=== PATIENT | female | born 1995 | race Caucasian/White ===

== ENCOUNTER 2020-02-14 08:44 | Outpatient (CLI) | payer BC | END 2020-02-14 08:45 | disposition home or self-care (01) | LOC: DTY/OP 08:44 | PROVIDERS: ATTEND Surgery | DX: E66.01 Morbid (severe) obesity due to excess calories (principal) | CPT/HCPCS: 97802 ==

== ENCOUNTER 2020-06-04 04:50 | Outpatient (CLI) | payer BC, OTHER ==
--- NOTE | 2020-06-04 12:02 | RAD ---
Exam: Chest one view HISTORY:Preoperative exam. Comparison: None FINDINGS: Cardiac silhouette: Normal Aorta: Unremarkable Pulmonary vessels: Normal Costophrenic angles: Clear LUNGS: No masses or consolidation. Pneumothorax: None Osseous abnormalities: None IMPRESSION: No acute cardiopulmonary process.
[2020-06-04 14:27] LABS: #Basophils 0.1 thou/uL (0.0-0.2); #Eosinphils 0.2 thou/uL (0.0-0.7); #Lymphocytes 2.4 thou/uL (1.20-3.40); #Monocytes 0.7 thou/uL (0.11-0.59); #Neutrophils 3.5 thou/uL (1.40-6.50); %Eosinophils 2.8 % (0.0-10.0); %Lymphocytes 34.6 % (21.0-51.0); %Monocytes 10.2 % (0.0-10.0); %Neutrophils 50.4 % (42.0-75.0); Hemoglobin 13.5 g/dL (12.0-16.0); Mean Corpuscular HGB CONC 33.9 g/dL (32.0-36.0); Mean Corpuscular Hemoglobin 31.1 pg (27.0-31.0); Mean Corpuscular Volume 91.7 fL (78.0-98.0); Mean Platelet Volume 8.3 fL (7.4-10.4); Platelet Count 274 thou/uL (130-400); RBC Distribution Width 11.4 % (11.5-14.5); Red Blood Cell (RBC) Count 4.34 mill/uL (4.20-5.40); White Blood Cell (WBC) Count 6.9 thou/uL (4.8-10.8)
[2020-06-04 15:24] LABS: Hemoglobin A1c 5.4 % (4.0-6.0)
[2020-06-04 15:45] LABS: ALT (SGPT) 55 U/L (8-55); AST (SGOT) 33 U/L (5-34); Albumin 4.5 g/dL (3.5-5.0); Alkaline Phosphatase 58 U/L (40-110); Anion Gap 15 mmol/L (10-20); BUN (Urea Nitrogen) 11 mg/dL (7.0-18.7); Bilirubin, Total 0.4 mg/dL (0.2-1.2); Calc. Creatinine Clearance 0 mL/min (70-130); Calcium 9.4 mg/dL (7.8-10.44); Carbon Dioxide 22 mmol/L (22-29); Chloride 103 mmol/L (98-107); Estimated GFR-MDRD Greater than 90; Globulin 2.9 g/dL (2.4-3.5); Glucose 97 mg/dL (70-105); Potassium 4.3 mmol/L (3.5-5.1); Protein, Total 7.4 g/dL (6.0-8.3); Sodium 136 mmol/L (136-145)
[2020-06-05 14:03] LABS: SARS-CoV-2 MS2 Positive; SARS-CoV-2 N Gene Negative; SARS-CoV-2 S Gene Negative; SARS-CoV-2 orf1ab Negative
== END 2020-06-04 04:51 | disposition home or self-care (01) ==
LOC: LABBT 04:50
PROVIDERS: ATTEND Surgery
DX: Z01.818 Encounter for other preprocedural examination (principal); Z11.59 Encounter for screening for other viral diseases; E66.01 Morbid (severe) obesity due to excess calories
CPT/HCPCS: 71045; 80053; 83036; 85025; 87635; 93005; 93010; U0003

== ENCOUNTER 2020-06-04 11:15 | Inpatient (IN) | payer BC ==
[2020-06-01 11:20] VITALS: BMI 49.4
[2020-06-07] MEDS ORDERED: Lidocaine 1% w/Epinephrine 1:100K 20 ML VIAL ONE (06:55)
[2020-06-07] MEDS ORDERED: Bupivacaine 0.25% HCL 30 ML VIAL ONE (06:55)
[2020-06-07] MEDS ORDERED: SUGAMMADEX SODIUM 500 MG/5 ML VIAL ONE (07:16)
[2020-06-07] MEDS ORDERED: Fentanyl 100 MCG/2 ML VIAL ONE ×3 (07:16→10:13)
[2020-06-07] MEDS ORDERED: HYDROmorphone 2 MG/ML VIAL ONE (07:16)
[2020-06-07] MEDS ORDERED: Midazolam HCl 2 mg/2 ml Vial ONE (07:37)
[2020-06-07] MEDS ORDERED: Meperidine HCl/PF 25 MG/ML VIAL SLOW IVP PRN (09:42)
[2020-06-07] MEDS ORDERED: Promethazine HCl 25 MG/ML VIAL SLOW IVP PRN (09:42)
[2020-06-07] MEDS ORDERED: Ondansetron HCl/PF 4 MG/2 ML Vial IVP PRN (09:42)
[2020-06-07] MEDS ORDERED: Morphine Sulfate 2 MG/ML SYRINGE SLOW IVP PRN (09:42)
[2020-06-07] MEDS ORDERED: PACU-Morphine 4MG/ML VIAL SLOW IVP PRN (09:42)
[2020-06-07] MEDS ORDERED: Promethazine HCl 25 MG/ML VIAL IM PRN ×3 (09:42→12:00)
[2020-06-07] MEDS ORDERED: HYDROmorphone 2 MG/ML VIAL SLOW IVP PRN (09:42)
[2020-06-07] MEDS ORDERED: diphenhydrAMINE 50 MG/ML VIAL IVP PRN ×2 (09:47→12:00)
[2020-06-07] MEDS ORDERED: diphenhydrAMINE 25 MG CAP PO PRN (09:47)
[2020-06-07] MEDS ORDERED: Zolpidem Tartrate 5 MG TAB PO PRN (09:47)
[2020-06-07] MEDS ORDERED: Ondansetron PF 4 MG/2 ML Vial IVP PRN ×2 (09:47→12:00)
[2020-06-07] MEDS ORDERED: diphenhydrAMINE 50 MG/ML VIAL IM PRN (09:47)
[2020-06-07] MEDS ORDERED: Naloxone HCl 0.4 mg/ml Vial IV PRN (09:47)
[2020-06-07] MEDS ORDERED: fentaNYL Citrate/PF 2,000 MCG in Sodium Chloride 0.9% 60 ML IV PRN (09:47)
[2020-06-07] MEDS ORDERED: Promethazine HCl 25 MG/ML VIAL ONE (09:59)
[2020-06-07] MEDS ORDERED: Communication Order-Pharmacy FS SCH (10:00)
[2020-06-07] MEDS ORDERED: D5 1/2 NS w/20 mEq KCL 1,000 ML ONE (10:18)
[2020-06-07] MEDS ORDERED: Labetalol HCl 100 MG/20 ML VIAL ONE ×2 (10:18→10:37)
[2020-06-07] MEDS ORDERED: hydrALAZINE 20 MG/ML VIAL ONE (10:20)
[2020-06-07] MEDS ORDERED: Morphine 4 MG/ML VIAL ONE (10:30)
--- NOTE | 2020-06-07 11:07 | OP ---
DATE OF PROCEDURE: 06/07/2020 PREOPERATIVE DIAGNOSES: 1. Morbid obesity with body mass index of 50. 2. Hypertension. POSTOPERATIVE DIAGNOSES: 1. Morbid obesity with body mass index of 50. 2. Hypertension. 3. Paraesophageal hiatal hernia. PROCEDURES: 1. Laparoscopic sleeve gastrectomy and GORE staple line reinforcement and 38-[place] bougie. 2. Laparoscopic paraesophageal hiatal hernia repair without mesh or fundoplication. 3. EGD. ANESTHESIA: General. ESTIMATED BLOOD LOSS: Minimal. COMPLICATIONS: None. SPECIMEN: Stomach. FINDINGS: Normal postoperative EGD. DESCRIPTION OF PROCEDURE: The patient was taken to the operating room and laid supine on the operating room table. After general anesthetic was obtained, arms and legs were double strapped to bariatric table. Her abdomen was prepped and draped in a sterile fashion. A left subcostal 5-mm Optiview trocar placed in the usual fashion and high-flow pneumoperitoneum was obtained. 12 mm ports were placed at the right and left umbilicus, 5 mm ports placed at right subcostal, 5 mm incisions made at the xiphoid and then Michael's were used to raise the liver off the GE junction. The short gastrics were taken down from midbody of the stomach to the left dexter of diaphragm. Left dexter, posterior fundus, and angle of His were completely dissected revealing a paraesophageal hiatal hernia. Short gastrics were taken down to a distance of 6 cm proximal to the pylorus. Circumferential dissection of the esophagus was performed bringing the fundus of the stomach back into the abdominal cavity. The gastrohepatic ligament was opened to dissect the right dexter. 38 bougie was brought and tip left in the antrum of the stomach. Multiple loads of [place] stapling device with GORE staple line reinforcement was used to form the sleeve. The first is a green load. The rest are gold loads, all the way to the angle of His. Stomach was removed from the left abdominal incision. The fascial defect closed using GraNee needle 0-Vicryl tie. The posterior crura were closed using 1 Ethibond suture in the Ti-KNOT system. Michael retractors removed under direct visualization. EGD scope was passed to the esophagus, stomach to the level of duodenum without obstruction. There was no stricture at the incisura. There was no stricture or stenosis at the esophageal hiatus or GE junction. There was no involvement of the staple line with the GE junction. The EGD scope was used to decompress the stomach, it was pulled and removed. There was no bleeding in the abdomen. There was no bleeding on the staple line. All port sites were infiltrated using local anesthetic and removed under direct visualization without bleeding. Pneumoperitoneum was let down. Vicryl was used to close the fascial defect from the left abdominal incisions. All incisions were irrigated and closed using 4-0 Monocryl and Dermabond. The patient was sent to Recovery in stable condition. All instrument counts, needle counts, and lap counts were correct. Job ID: [id number]
[2020-06-07] MEDS ORDERED: Morphine 2 MG/ML VIAL ONE (11:15)
[2020-06-07] MEDS ORDERED: Glycopyrrolate 0.2 MG/ML 5 ML SYRINGE ONE (11:52)
[2020-06-07] MEDS ORDERED: PROPOFOL 200 MG/20 ML VIAL ONE (11:52)
[2020-06-07] MEDS ORDERED: Rocuronium Bromide 10 MG/ML (10ML VIAL) ONE (11:52)
[2020-06-07] MEDS ORDERED: Dexamethasone 20 MG/5 ML VIAL ONE (11:52)
[2020-06-07] MEDS ORDERED: Lidocaine 1% PF 5 ML VIAL ONE (11:52)
[2020-06-07] MEDS ORDERED: Ondansetron PF 4 MG/2 ML Vial ONE (11:52)
[2020-06-07] MEDS ORDERED: Ketorolac Tromethamine 30 MG/ML VIAL ONE (11:52)
[2020-06-07] MEDS ORDERED: Esmolol 100 MG/10 ML VIAL ONE (11:52)
[2020-06-07] MEDS: D5 1/2 NS w/20 mEq KCL 1,000 ML IV SCH ×2 (12:00→20:06)
[2020-06-07] MEDS ORDERED: Dextrose 50% Abboject 50 ML SYRINGE SLOW IVP PRN (12:00)
[2020-06-07] MEDS ORDERED: Dextrose 5% in Water 1,000 ML IV PRN (12:00)
[2020-06-07] MEDS ORDERED: hydrALAZINE 20 MG/ML VIAL SLOW IVP PRN (12:00)
[2020-06-07] MEDS ORDERED: Hydrocodone-Acetamin 15 ML UDCUP PO PRN (12:00)
[2020-06-07] MEDS ORDERED: Sodium Chloride 0.9% (PF) 10 ML VIAL FS PRN (12:13)
[2020-06-07] MEDS ORDERED: Enoxaparin Sodium 40 MG/0.4 ML SYRINGE SC SCH (21:00)
[2020-06-07] MEDS ORDERED: OLANZapine 5 MG TAB PO SCH (21:30)
[2020-06-08] MEDS: D5 1/2 NS w/20 mEq KCL 1,000 ML IV SCH (03:11)
[2020-06-08 06:01] LABS: #Lymphocytes 1.7 thou/uL (1.20-3.40); #Neutrophils 9.1 thou/uL (1.40-6.50); %Basophils 0.1 % (0.0-1.0); %Eosinophils 0.1 % (0.0-10.0); %Lymphocytes 14.2 % (21.0-51.0); %Monocytes 8.8 % (0.0-10.0); %Neutrophils 76.9 % (42.0-75.0); Hemoglobin 11.5 g/dL (12.0-16.0); Mean Corpuscular HGB CONC 32.7 g/dL (32.0-36.0); Mean Corpuscular Hemoglobin 30.1 pg (27.0-31.0); Mean Corpuscular Volume 92.1 fL (78.0-98.0); Platelet Count 275 thou/uL (130-400); RBC Distribution Width 11.6 % (11.5-14.5); Red Blood Cell (RBC) Count 3.83 mill/uL (4.20-5.40); White Blood Cell (WBC) Count 11.9 thou/uL (4.8-10.8)
[2020-06-08 06:19] LABS: Anion Gap 11 mmol/L (10-20); BUN (Urea Nitrogen) 5 mg/dL (7.0-18.7); Calc. Creatinine Clearance 336 mL/min (70-130); Calcium 8.7 mg/dL (7.8-10.44); Carbon Dioxide 25 mmol/L (22-29); Chloride 106 mmol/L (98-107); Estimated GFR-MDRD Greater than 90; Glucose 114 mg/dL (70-105); Potassium 4.2 mmol/L (3.5-5.1); Sodium 138 mmol/L (136-145)
[2020-06-08 07:39] VITALS: BP 141/83; TEMP 98.3
[2020-06-08] MEDS ORDERED: Pantoprazole 40 MG VIAL IVP SCH (09:00)
[2020-06-08] MEDS ORDERED: Lisinopril 20 MG TAB PO SCH (09:00)
[2020-06-08] MEDS ORDERED: FLUoxetine HCl 20 MG CAP PO SCH (09:00)
--- NOTE | 2020-06-08 12:50 | DIS ---
DATE OF ADMISSION: 06/07/2020 DATE OF DISCHARGE: 06/08/2020 ADMITTING DIAGNOSIS: Morbid obesity. DISCHARGE DIAGNOSIS: Morbid obesity. PROCEDURE PERFORMED: Laparoscopic sleeve gastrectomy by Dr. Lee without complication. CONDITION ON DISCHARGE: Improved. HOSPITAL COURSE: On postop day #1, the patient is ambulatory. Her pain is controlled. She is tolerating the liquids. She is being discharged home. Prescriptions for Lortab Elixir, Zofran, and pantoprazole are already sent to her pharmacy. She will follow up with me in 2 weeks. Job ID: [id number]
[2020-06-08] MEDS ORDERED: OLANZapine 5 MG TAB PO SCH (21:00)
== END 2020-06-08 11:37 | disposition home or self-care (01) | DRG 621 ==
LOC: SURG A 06-07 06:06 → SURG B 06-07 11:55
PROVIDERS: ADMIT Surgery; ATTEND Surgery
PROC: 0DB64Z3 Excision of Stomach, Percutaneous Endoscopic Approach, Vertical (ICD-10-PCS; principal; 2020-06-07)
PROC: 0BQT4ZZ Repair Diaphragm, Percutaneous Endoscopic Approach (ICD-10-PCS; 2020-06-07)
PROC: 0DJ08ZZ Inspection of Upper Intestinal Tract, Via Natural or Artificial Opening Endoscopic (ICD-10-PCS; 2020-06-07)
DX: E66.01 Morbid (severe) obesity due to excess calories (principal); Z68.42 Body mass index [BMI] 45.0-49.9, adult; I10 Essential (primary) hypertension; J30.2 Other seasonal allergic rhinitis; F31.9 Bipolar disorder, unspecified; K44.9 Diaphragmatic hernia without obstruction or gangrene; Z79.899 Other long term (current) drug therapy
CPT/HCPCS: 36415; 71045; 80048; 80053; 83036; 85025; 87635; 88307; 88312; 93005; C9113; J0360; J0690; J1100; J1170; J1650; J1885; J2250; J2270; J2405; J2550; J2704; J3010; J3480; S0020; U0003